=== PATIENT | female | born 1960 | race Caucasian/White ===

== ENCOUNTER 2024-01-23 06:39 | Emergency (ER) | payer OTHER, SELFPAY ==
--- NOTE | 2024-01-23 06:27 | ED.CPR ---
HPI - CPR General Chief Complaint: Cardiac Arrest/CPR Stated Complaint: cardiac arrest History of Present Illness HPI narrative: patient's noticed patient on floor unresponsive, he thought she was still breathing; when EMS arrived they didn't have a pulse so started CPR. 3 rounds epi with IO, bagging, at some point they thought she was in PEA or maybe had a thready pulse and agonal respirations?, gave atropine, she became asystole again, transported here. Total downtime from EMS starting CPR to arrival here is 1hr Review of Systems Review of Systems: ROS unobtainable: Yes unobtainable due to mental status Exam Narrative: EXAMINATION OF ORGAN SYSTEMS/BODY AREAS: Constitutional: Vital signs per nursing GENERAL: unresponsive HEAD: Normal with no signs of head trauma. EYES: pupils dilated ENT: dry mucous membranes LUNGS: Diminished breath sounds with bagging. HEART: pulseless ABD: [Soft] EXT: IO right tibia NEURO: unresponsive MDM - Cardiac Arrest/CPR MDM Narrative Medical decision making narrative: 63F presents in cardiac arrest, downtime >1hr, after 1 rd of CPR/epi is in PEA here; POCUS by myself showing no significant cardiac activity. Given this and prolonged downtime with unknown LNW, and continuing pulselessness, TOD at 6:26. Critical Care Time Critical Care Time Critical Care Time: Yes Total Critical Care Time: 21 Discharge Plan Discharge Clinical Impression: Cardiac arrest Patient Disposition: Condition: Follow-up/Referrals: Lisa,Javi Noland MD [Primary Care Provider] -
[2024-01-23 06:33] VITALS: PULSE 0; RESP 0; O2SAT 0
--- NOTE | 2024-01-23 06:54 | PC.NURSE ---
06 Pt arrived to ED CPR in progress. Dr. Simms at bedside. 06 First round of EPI administered via IO in right knee. 624 CPR was paused for pulse check Absent pulse and PEA on monitor. Dr. Simms performed cardiac ultrasound, no cardiac activity seen. 625 Time of was called by Dr. Simms.
== END 2024-01-23 08:57 | disposition expired ==
LOC: ANHED 09:13
PROVIDERS: Emergency Provider Emergency Medicine; PCP Family Medicine
DX: I46.9 Cardiac arrest, cause unspecified (principal)
CPT/HCPCS: 92950; 99285; J0171